=== PATIENT | male | born 1990 | race Caucasian/White ===

== ENCOUNTER 2018-02-14 14:29 | Outpatient (CLI) | payer BC ==
--- NOTE | 2018-02-21 07:57 | PFT ---
PATIENT HISTORY: HEIGHT: 73 IN WEIGHT:160 SMOKER: YES HOW LONG: PACKS PER DAY PRODUCTIVE COUGH: LUNG DISEASE: PHYSICIAN INTERPRETATION FINAL REPORT: Shellfish Sorter comments patient and good effort and cooperation. Repeated a DLCO with the same result FVC 6.65 (118%), FEV1 5.41 (122%), FEV1/FVC 0.81. TLC 7.63 (102%), FRC 4.15 (102%), RV 1.35 (72%). Diffusion 43.04 (130%). The FVC and FEV1 fall at the upper limits of normal. The ratio was also normal suggesting there is no element of obstructive airflow limitation. The expiratory limb on the flow volume loop and the inspiratory limb on the flow volume loop are normal. The total lung capacity and FRC is normal. The residual volume is minimally reduced but likely secondary to incomplete exhalation because the ERV was a significantly elevated number. The diffusion capacity is a slightly elevated. IMPRESSION: Spirometry and lung volumes are normal. Gas exchange is mildly elevated which may be normal, but this can be seen in polycythemia and well controlled asthma. Clinical correlation is suggested. Shellfish Sorter: [employer] Presser: MANDO ROJAS
== END 2018-02-14 14:30 | disposition home or self-care (01) ==
LOC: CP 14:29
DX: J45.909 Unspecified asthma, uncomplicated (principal); D75.1 Secondary polycythemia
CPT/HCPCS: 94010; 94727; 94729